=== PATIENT | male | born 1980 | race Hispanic/Latino ===

== ENCOUNTER 2018-05-22 17:46 | Emergency (ER) | payer SELFPAY ==
--- NOTE | 2018-05-22 20:29 | RAD ---
LEFT FOOT THREE VIEWS: HISTORY: Injury. COMPARISON: None. FINDINGS: There is a mildly comminuted intraarticular fracture of the great toe distal phalanx, extending from the tuft to the base. Mild adjacent soft tissue swelling. Lisfranc interval is maintained. IMPRESSION: Mildly comminuted intraarticular fracture, distal phalanx, great toe. POS: HOME
== END 2018-05-22 19:05 | disposition home or self-care (01) ==
LOC: NAV ERS 17:46
DX: S92.422A Displaced fracture of distal phalanx of left great toe, initial encounter for closed fracture (principal); F17.210 Nicotine dependence, cigarettes, uncomplicated; W20.8XXA Other cause of strike by thrown, projected or falling object, initial encounter

== ENCOUNTER 2019-03-30 09:54 | Emergency (ER) | payer SELFPAY ==
[2019-03-30 10:24] LABS: #Basophils 0.1 thou/uL (0.0-0.2); #Eosinphils 0.2 thou/uL (0.0-0.7); #Lymphocytes 3.2 thou/uL (1.20-3.40); #Monocytes 0.6 thou/uL (0.11-0.59); #Neutrophils 3.2 thou/uL (1.40-6.50); %Basophils 1.2 % (0.0-1.0); %Eosinophils 2.9 % (0.0-10.0); %Monocytes 7.7 % (0.0-10.0); %Neutrophils 44.2 % (42.0-75.0); Hemoglobin 15.9 g/dL (14.0-18.0); Mean Corpuscular HGB CONC 34.3 g/dL (32.0-36.0); Mean Corpuscular Hemoglobin 29.3 pg (27.0-31.0); Mean Corpuscular Volume 85.3 fL (78.0-98.0); Mean Platelet Volume 8.7 fL (7.4-10.4); Platelet Count 271 thou/uL (130-400); RBC Distribution Width 11.4 % (11.5-14.5); Red Blood Cell (RBC) Count 5.42 mill/uL (4.70-6.10); White Blood Cell (WBC) Count 7.2 thou/uL (4.8-10.8)
--- NOTE | 2019-03-30 10:28 | RAD ---
Exam: Chest one view HISTORY:Chest pain Comparison: None FINDINGS: Cardiac silhouette: Normal Pulmonary vessels: Normal Costophrenic angles: Right costophrenic angle is clear LUNGS: Diminished lung volumes, likely due to poor inspiratory effort. Obscuration of left hemidiaphr agm. Pleural and parenchymal changes. Pneumothorax: None Osseous abnormalities: None IMPRESSION: 1. Decreased lung volumes likely due to a poor inspiratory effort. 2. Obscuration left hemidiaphragm may be due to pleural and parenchymal changes. Continued surveillan ce is recommended.
[2019-03-30 10:39] LABS: ALT (SGPT) 129 U/L (8-55); AST (SGOT) 47 U/L (5-34); Albumin 4.2 g/dL (3.5-5.0); Alkaline Phosphatase 154 U/L (40-150); Anion Gap 15 mmol/L (10-20); BUN (Urea Nitrogen) 14 mg/dL (8.9-20.6); Bilirubin, Total 0.2 mg/dL (0.2-1.2); Calc. Creatinine Clearance 0 mL/min (70-130); Calcium 9.9 mg/dL (7.8-10.44); Carbon Dioxide 24 mmol/L (22-29); Chloride 107 mmol/L (98-107); Estimated GFR-MDRD 77; Glucose 160 mg/dL (70-105); Lipase 57 U/L (8-78); Potassium 4.3 mmol/L (3.5-5.1); Protein, Total 7.2 g/dL (6.0-8.3); Sodium 142 mmol/L (136-145)
[2019-03-30] MEDS ORDERED: Mag-Al Plus 1200 MG/1200 MG/120 MG/30 ML UDCUP ONE (10:41)
[2019-03-30] MEDS ORDERED: Aspirin Chewable 81 MG TAB ONE (10:42)
[2019-03-30] MEDS ORDERED: Lidocaine Viscous Sol 2% 15 ml UD Cup ONE (10:42)
[2019-03-30] MEDS ORDERED: Nitroglycerin 0.4 MG TAB (25 Tab Bottle) ONE (10:42)
[2019-03-30] MEDS ORDERED: Pantoprazole 40 MG VIAL ONE (11:09)
== END 2019-03-30 11:13 | disposition home or self-care (01) ==
LOC: NAV ERS 09:54
DX: K21.0 Gastro-esophageal reflux disease with esophagitis (principal); F17.210 Nicotine dependence, cigarettes, uncomplicated
CPT/HCPCS: 36415; 71045; 80053; 83690; 84484; 85025; 85379; 93005; 96374; C9113

== ENCOUNTER 2020-05-21 17:34 | Emergency (ER) | payer OTHER ==
[2020-05-22 14:58] LABS: SARS-CoV-2 MS2 Positive; SARS-CoV-2 N Gene Positive; SARS-CoV-2 S Gene Positive; SARS-CoV-2 orf1ab Positive
== END 2020-05-21 18:15 | disposition home or self-care (01) ==
LOC: NAV ERS 17:34
DX: U07.1 COVID-19 (principal); B34.9 Viral infection, unspecified; J30.2 Other seasonal allergic rhinitis
CPT/HCPCS: 87635; 99284; U0003

== ENCOUNTER 2021-12-22 16:19 | Emergency (ER) | payer OTHER, SELFPAY ==
[2021-12-22] MEDS ORDERED: Azithromycin 250 MG TAB ONE ×2 (17:57→18:00)
== END 2021-12-22 18:07 | disposition home or self-care (01) ==
LOC: NAV ERS 16:19
DX: J18.9 Pneumonia, unspecified organism (principal); J45.909 Unspecified asthma, uncomplicated; F17.210 Nicotine dependence, cigarettes, uncomplicated
CPT/HCPCS: 71046

== ENCOUNTER 2023-02-21 18:45 | Emergency (ER) | payer BC, SELFPAY | END 2023-02-21 20:10 | disposition home or self-care (01) | LOC: NAV ERS 18:45 | DX: B34.9 Viral infection, unspecified (principal); F17.210 Nicotine dependence, cigarettes, uncomplicated; J45.909 Unspecified asthma, uncomplicated; Z20.822 Contact with and (suspected) exposure to COVID-19; Z79.899 Other long term (current) drug therapy | CPT/HCPCS: 71046; 87804; U0003; U0005 ==